=== PATIENT | male | born 1990 | race Two or more races ===

== ENCOUNTER 2024-08-03 06:05 | Emergency (ER) | payer OTHER ==
[~2024-08-03] VITALS: Ht 165.1 cm; Wt 63.5 kg
[2024-08-03] MEDS ORDERED: TETANUS & DIPHTHERIA TOX,ADULT 0.5 ML VIAL IM STA (06:49)
[2024-08-03] MEDS ORDERED: KETOROLAC TROMETHAMINE 10 MG TABLET PO STA (08:23)
== END 2024-08-03 11:03 | disposition home or self-care (01) ==
LOC: ER 06:05
DX: S51.812A Laceration without foreign body of left forearm, initial encounter (principal); S29.8XXA Other specified injuries of thorax, initial encounter; S59.919A Unspecified injury of unspecified forearm, initial encounter; S50.10XA Contusion of unspecified forearm, initial encounter; V49.88XA Car occupant (driver) (passenger) injured in other specified transport accidents, initial encounter; Y93.89 Activity, other specified; Y92.89 Other specified places as the place of occurrence of the external cause; Y99.8 Other external cause status